=== PATIENT | female | born 1995 | race Caucasian/White ===

== ENCOUNTER 2017-12-06 12:40 | Outpatient (CLI) | payer OTHER ==
[~2017-12-06] VITALS: Ht 157.5 cm; Wt 37.4 kg
[2017-12-06 12:57] VITALS: BP 126/65
[2017-12-06] MEDS ORDERED: FLU VACC QS2017-18 (36MOS+) UP/PF 0.5 ML IM-VACC ONE (14:00)
== END 2017-12-06 14:22 | disposition home or self-care (01) ==
LOC: LDOP 12:40
PROVIDERS: ATTEND Obstetrics & Gynecology Female Pelvic Medicine and Reconstructive Surgery
DX: O42.92 Full-term premature rupture of membranes, unspecified as to length of time between rupture and onset of labor (principal); Z3A.37 37 weeks gestation of pregnancy
CPT/HCPCS: 59025; 89060; 90686; 96372; 99201; G0463; Q0114

== ENCOUNTER 2018-01-02 01:43 | Inpatient (IN) | payer OTHER ==
[~2018-01-02] VITALS: Ht 157.5 cm; Wt 89.0 kg
[2018-01-02] MEDS ORDERED: LACTATED RINGERS 1,000 ML IV SCH ×3 (02:08→03:30)
[2018-01-02] MEDS ORDERED: OXYTOCIN 30U/ 0.9% NaCL 500ML 500 ML IV ONE (02:08)
[2018-01-02] MEDS ORDERED: TERBUTALINE 1 MG/ML, 1ML ONE (02:15)
[2018-01-02] MEDS ORDERED: FENTANYL PF 250 MCG/5ML ONE (02:20)
[2018-01-02] MEDS ORDERED: METOCLOPRAMIDE 5 MG/ML, 2ML ONE (02:20)
[2018-01-02] MEDS ORDERED: NEWBORN KIT ONE (02:26)
[2018-01-02] MEDS ORDERED: TERBUTALINE 1 MG/ML, 1ML IVPush PRN (02:30)
[2018-01-02] MEDS ORDERED: ONDANSETRON 2MG/ML, 2ML IVPush PRN (02:30)
[2018-01-02] MEDS ORDERED: WATER-INJECTION,STERILE 10 ML IV ONE (02:31)
[2018-01-02] MEDS ORDERED: OXYTOCIN 10 UNITS/ML, 1ML ONE (02:31)
[2018-01-02] MEDS ORDERED: PROPOFOL 10 MG/ML, 20ML ONE (02:31)
[2018-01-02] MEDS ORDERED: ONDANSETRON 2MG/ML, 2ML ONE (02:31)
[2018-01-02] MEDS ORDERED: CEFAZOLIN 1,000 MG ONE (02:31)
[2018-01-02] MEDS ORDERED: PHENYLEPHRINE 10 MG/ML ONE (02:31)
[2018-01-02] MEDS ORDERED: LIDOCAINE-MPF 2% ,5ML ONE (02:31)
[2018-01-02] MEDS ORDERED: EPHEDRINE 50 MG/ML, 1ML ONE (02:31)
[2018-01-02] MEDS ORDERED: SUCCINYLCHOLINE 20 MG/ML, 10ML ONE (02:31)
[2018-01-02 02:32] LABS: BASOPHILS # (AUTO) 0.07 x10^3/uL (0-0.1); BASOPHILS % (AUTO) 1 % (0-1); EOSINOPHILS # (AUTO) 0.01 x10^3/uL (0-0.4); EOSINOPHILS % (AUTO) 0 % (1-7); LYMPHOCYTES # (AUTO) 1.27 x10^3/uL (1-3.4); LYMPHOCYTES % (AUTO) 10 % (22-44); MD NO; MEAN CORPUSCULAR HEMOGLOBIN 27.3 pg (27.0-34.8); MEAN CORPUSCULAR HGB CONC 33.1 g/dL (32.4-35.8); MEAN CORPUSCULAR VOLUME 82.5 fL (80-100); MONOCYTES % (AUTO) 5 % (2-9); NEUTROPHILS % (AUTO) 85 % (42-75); PLATELET COUNT 216 x10^3/uL (130-400); RED BLOOD COUNT 4.87 x10^6/uL (3.82-5.3); RED CELL DISTRIBUTION WIDTH 14.8 % (9.6-15.2)
[2018-01-02] MEDS ORDERED: morphine SULFATE 10 MG/ML, 1ML ONE (02:40)
[2018-01-02] MEDS ORDERED: OXYTOCIN 30U/ 0.9% NaCL 500ML 500 ML ONE (02:48)
[2018-01-02] MEDS: LACTATED RINGERS 1,000 ML IV SCH ×6 (03:11→23:11)
[2018-01-02] MEDS: OXYTOCIN 30U/ 0.9% NaCL 500ML 500 ML IV SCH ×3 (03:11→23:11)
[2018-01-02] MEDS ORDERED: OXYTOCIN 30U/ 0.9% NaCL 500ML 500 ML IV SCH (03:17)
[2018-01-02] MEDS ORDERED: LACTATED RINGERS 1,000 ML IVBOLUS ONE (03:30)
[2018-01-02] MEDS ORDERED: OXYcodone/APAP 5/325MG TABLET PO PRN (03:30)
[2018-01-02] MEDS ORDERED: ONDANSETRON 2MG/ML, 2ML IV PRN (03:30)
[2018-01-02] MEDS ORDERED: METHYLERGONOVINE 0.2 MG/ML IM PRN (03:30)
[2018-01-02] MEDS ORDERED: SIMETHICONE 80 MG CHEW TAB PO PRN (03:30)
[2018-01-02] MEDS ORDERED: MISOPROSTOL 200 MCG TABLET PR PRN (03:30)
[2018-01-02] MEDS ORDERED: ACETAMINOPHEN 325 MG TABLET PO PRN (03:30)
[2018-01-02 04:07] VITALS: BP 98/59
[2018-01-02 05:30] VITALS: BP 119/80
[2018-01-02] MEDS: KETOROLAC 30 MG/1 ML IV SCH ×3 (05:44→18:16)
[2018-01-02 08:05] VITALS: BP 108/68
[2018-01-02] MEDS: PRENATAL VIT/IRON/FA 1 EACH TABLET PO SCH (08:11)
[2018-01-02] MEDS: DOCUSATE 100 MG CAPSULE PO PRN ×2 (08:11→22:45)
[2018-01-02 11:25] LABS: BASOPHILS # (AUTO) 0.04 x10^3/uL (0-0.1); BASOPHILS % (AUTO) 0 % (0-1); EOSINOPHILS # (AUTO) 0.04 x10^3/uL (0-0.4); EOSINOPHILS % (AUTO) 0 % (1-7); LYMPHOCYTES # (AUTO) 1.69 x10^3/uL (1-3.4); LYMPHOCYTES % (AUTO) 14 % (22-44); MD NO; MEAN CORPUSCULAR HEMOGLOBIN 27.6 pg (27.0-34.8); MEAN CORPUSCULAR HGB CONC 33.6 g/dL (32.4-35.8); MEAN CORPUSCULAR VOLUME 82.3 fL (80-100); MEAN PLATELET VOLUME 9.2 fL (7.4-10.4); MONOCYTES % (AUTO) 7 % (2-9); NEUTROPHILS # (AUTO) 9.19 x10^3/uL (1.8-6.8); NEUTROPHILS % (AUTO) 78 % (42-75); PLATELET COUNT 174 x10^3/uL (130-400); RED BLOOD COUNT 3.71 x10^6/uL (3.82-5.3)
[2018-01-02 12:00] VITALS: BP 131/85
[2018-01-02 16:15] VITALS: BP 126/84
[2018-01-02 20:00] VITALS: BP 128/86
[2018-01-02] MEDS: OXYcodone/APAP 5/325MG TABLET PO PRN (22:45)
[2018-01-03] MEDS: KETOROLAC 30 MG/1 ML IV SCH ×2 (00:07→06:05)
[2018-01-03] MEDS: LACTATED RINGERS 1,000 ML IV SCH ×2 (03:11→09:11)
[2018-01-03 07:30] VITALS: BP 134/71
[2018-01-03] MEDS: DOCUSATE 100 MG CAPSULE PO PRN ×2 (08:27→19:21)
[2018-01-03] MEDS: PRENATAL VIT/IRON/FA 1 EACH TABLET PO SCH (08:27)
[2018-01-03] MEDS: OXYTOCIN 30U/ 0.9% NaCL 500ML 500 ML IV SCH (09:11)
[2018-01-03] MEDS: OXYcodone/APAP 5/325MG TABLET PO PRN ×2 (12:13→19:21)
[2018-01-03] MEDS: IBUPROFEN 800 MG TABLET PO PRN ×2 (12:13→23:32)
[2018-01-03] MEDS ORDERED: DIPH,PERTUSS(ACELL),TET VAC/PF NC IM-VACC ONE (19:30)
[2018-01-03 20:00] VITALS: BP 131/86
[2018-01-04] MEDS: OXYcodone/APAP 5/325MG TABLET PO PRN ×2 (05:04→16:05)
[2018-01-04 08:15] VITALS: BP 130/85
[2018-01-04] MEDS: DOCUSATE 100 MG CAPSULE PO PRN (08:17)
[2018-01-04] MEDS: IBUPROFEN 800 MG TABLET PO PRN (08:17)
[2018-01-04] MEDS: PRENATAL VIT/IRON/FA 1 EACH TABLET PO SCH (08:17)
[2018-01-04] MEDS ORDERED: IBUP-1223 PO (14:29)
[2018-01-04] MEDS ORDERED: PREN1TAB60 PO (14:30)
[2018-01-04] MEDS ORDERED: OXYC-302 PO (14:30)
[2018-01-04] MEDS ORDERED: ACET325T14 PO (14:31)
[2018-01-04] MEDS ORDERED: SIME80TA15 PO (14:32)
[2018-01-04] MEDS ORDERED: FERR325T23 PO (14:34)
== END 2018-01-04 17:16 | disposition home or self-care (01) | DRG 766 ==
LOC: LDOP 01:43 → LDIP 02:02 → 2NW 05:10
PROVIDERS: ADMIT Obstetrics & Gynecology Female Pelvic Medicine and Reconstructive Surgery; ATTEND Obstetrics & Gynecology Female Pelvic Medicine and Reconstructive Surgery
PROC: 10D00Z1 Extraction of Products of Conception, Low, Open Approach (ICD-10-PCS; principal; 2018-01-02)
DX: O48.0 Post-term pregnancy (principal); O76 Abnormality in fetal heart rate and rhythm complicating labor and delivery; Z37.0 Single live birth; O77.0 Labor and delivery complicated by meconium in amniotic fluid; Z3A.41 41 weeks gestation of pregnancy
CPT/HCPCS: 36415; 82803; 85025; 86592; 86762; 86803; 86850; 86900; 87340; 87806; 88305; 90715; J0690; J1885; J2405; J2704; J3010; J3490; G0475; J0330; J2270; J2370; J2590; J2765; J7120